=== PATIENT | male | born 1975 | race Caucasian/White ===

== ENCOUNTER 2025-01-19 14:51 | Emergency (ER) | payer BC, SELFPAY ==
[2025-01-19] VITALS (7 sets, daily range): BP systolic 143–172; BP diastolic 102–117
[2025-01-19] MEDS: NSS 500 IV (16:15)
[2025-01-19] MEDS: TYLENOL 650 MG PO (16:15)
[2025-01-19 16:22] LABS: Hematocrit 45.8 % (39.0-52.0); Hemoglobin 15.4 g/dL (13.0-18.0); Mean Corp Hgb Conc. 33.6 g/dL (33.0-37.0); Mean Corpuscular Volume 89.8 fL (80.0-94.0); Nucleated Red Blood Cells % 0 % (-); Platelet Count 242 10^3/uL (130-400); Red Cell Dist. Width 13.2 % (11.5-14.5)
[2025-01-19 16:33] LABS: ALT (SGPT) 50 U/L (0-50); AST (SGOT) 29 U/L (17-59); Albumin 4.4 g/dl (3.5-5.0); Alkaline Phosphatase 79 U/L (38-126); Blood Urea Nitrogen 18 mg/dl (9-20); Calcium 9.3 mg/dl (8.4-10.2); Carbon Dioxide 26 mmol/L (22-30); Chloride 106 mmol/L (98-107); Glucose 92 mg/dl (70-99); Potassium 4.5 mmol/L (3.5-5.1); Sodium 135 mmol/L (135-145); Total Protein 7.5 g/dl (6.3-8.2); eGFR > 60.00
--- NOTE | 2025-01-19 17:28 | ED.GENMED ---
History of Present Illness
General
Chief Complaint: Blood Pressure Problem
Source: patient
Exam Limitations: none
Time Seen by Provider: 01/19/25 16:02
Nursing documentation reviewed up to this point in time: agreed with
History of Present Illness
History of Present Illness:
Patient with history of NC in 2016 months with one cardiac stent placement, presents to ED secondary to persistent headache over the past 24 hours, not relieved with Advil. Denies dizziness. Denies blurred vision. Denies difficulty with speech or
swallowing. Denies loss of sensation or weakness. Denies difficulty with ambulation. Patient states that he often gets headache, at least once a month, but is usually relieved by taking Advil. Denies recent illness. Denies recent change in
medications or diet. 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
Past History
Past History
ED Past Medical History: None and NC; Negative Asthma, HTN, Hypercholesterolemia or NIDDM
ED Past Surgical History: Cardiac (Stent)
Social History
Tobacco: Smoker
Alcohol: None
Personal: Single
Living: with roommate
Employment: Employed
Review of Systems
Review of Systems
Allergies reviewed?: Yes
All Other Systems: ROS reviewed and negative except as documented in HPI and ROS
Constitutional: Reports no symptoms; Denies fever
Cardiac: Reports no symptoms
ABD/GI: Reports no symptoms; Denies nausea or vomiting
Musculoskeletal: Reports no symptoms
Skin: Reports no symptoms
Neurological: Reports headache; Denies dizzy, weakness or numbness
Phy Exam
Physical Exam
Physical Exam:
Physical Exam
General: no apparent distress, not acutely ill. afebrile
Head: nc/at. eomi
Neck: supple. normal range of motion.
Heart: s1/s2 regular rate and rhythm.
Lungs: no acute respiratory distress. clear bilaterally
Abdomen: normal bowel sounds. not tender.
Neuro: alert and oriented x 3. no focal neurological deficits. normal speech. normal gait
Skin: no rash
Psychiatric: well kept. interactive and cooperative
Extremities: no edema. no calf tenderness.
Course
Orders/Labs/Results
Orders:
Orders
01/19/25 14:59
ECG [Electrocardiogram (*1)] Urgent
Reason for Study: Hypertension, Benign
EKG- Treatment ONCE
01/19/25 16:02
Acetaminophen [Tylenol] 650 mg PO NOW STA
01/19/25 16:03
0.9% Sodium Chloride 500 ml [Nss] 500 ml IV BOLUS
01/19/25 16:11
Complete Blood Count/With Diff Urgent
Comprehensive Metabolic Panel Urgent
01/19/25 17:04
CT Head W/o Iv Contrast Urgent
Comment:
Reason For Exam: headache with hypertension
Abnormal Lab Results
01/19/25
16:11
Immature Gran % 0.6 H %
(0-0.5)
01/19/25 16:11
01/19/25 16:11
Vital Signs
Initial and Last Documented VS:
Initial Vital Signs
Temp Pulse Resp BP Pulse Ox
98 F 75 20 172/117 98
01/19/25 14:57 01/19/25 14:57 01/19/25 14:57 01/19/25 14:57 01/19/25 14:57
Last Documented Vital Signs
Temp Pulse Resp BP Pulse Ox
98 F 64 22 163/109 97
01/19/25 14:57 01/19/25 20:05 01/19/25 20:05 01/19/25 20:05 01/19/25 20:11
MDM/Problems Addressed
MDM/Problems Addressed:
CT head report reviewed and discussed with patient, including need to follow-up with PCP or neurology for outpatient evaluation. In addition, in better patient's known CAD without having had recent follow-up, patient will be recommended strongly to
follow-up with PCP and cardiology for further evaluation and treatment. Patient otherwise is afebrile, hemodynamically stable, and neurologically intact, at time of discharge.
*Pulse Oximetry
SaO2: 98
Oxygen Mode of Delivery: Room air
Patient hypoxic: no
*Critical Care Note
Total Time (30-74mins, 75-104mins- exclusive of procedures): Not Applicable
ED Attending Note
-
Portions of this chart may have been created with voice recognition software.� Occasional wrong word or��sound alike� substitutions may have occurred due to the inherent limitations of voice recognition software.
Discharge Plan
Departure
Patient Disposition: Home (Routine Discharge)
Date of Disposition: 01/19/25
Time of Disposition: 19:52
Patient with high blood pressure during this ER visit?: Yes
Condition: Fair
Discharge Problem:
Headache, Hypertension
Instructions: High Blood Pressure (DC), Headache in adults - ED (DC)
Prescriptions:
No Action
aspirin 81 MG tablet,chewable
81 mg PO DAILY
hydrocodone-acetaminophen 1 TABLET tablet
1 tab PO Q4HPRN PRN (Reason: moderate to severe pain) Qty: 25 0RF
acetaminophen 325 MG tablet
650 mg PO Q4HWA 0RF
Referrals:
Dru Kingsley MD [Active, Neurology]
UNKNOWN - PT DOES,NOT KNOW [Family Provider]
Activity Restrictions/Additional Instructions:
As discussed, please follow-up with your primary care physician, database design analyst, as well as referred neurologist for further evaluation and treatment, including discussion of CT report today as well as reassessment of your blood pressure.
Interventions
Interventions:
*Risk Screen - Suicide Last Done: 01/19/25 20:02
*General Assessment Last Done: 01/19/25 14:57
*Neglect/Abuse Screening Last Done: 01/19/25 20:02
*ED- Fall Risk Assessment Last Done: 01/19/25 20:02
*ED COVID-19 Vaccine History Last Done: 01/19/25 20:02
*ED Influenza Vaccine History Last Done: 01/19/25 20:02
*Nursing Disposition Last Done: 01/19/25 20:11
ED- Cardiac Assessment Last Done: 01/19/25 15:52
ED- Neurological Assessment Last Done: 01/19/25 15:52
ED- Pulmonary Assessment Last Done: 01/19/25 15:52
Discharge Date and Time
Discharge Date/Time: 01/19/25 20:14
Print Language: MONTSERRATIAN
== END 2025-01-19 20:14 | disposition home or self-care (01) ==
LOC: EMR 14:51
PROVIDERS: EMERGENCY PHYSICIAN Emergency Medicine
DX: R51.9 Headache, unspecified (principal); I10 Essential (primary) hypertension; I25.2 Old myocardial infarction; I25.10 Atherosclerotic heart disease of native coronary artery without angina pectoris; Z95.5 Presence of coronary angioplasty implant and graft; F17.200 Nicotine dependence, unspecified, uncomplicated
CPT/HCPCS: 99284; 70450; 80053; 85025; 93005